=== PATIENT | female | born 1985 | race Caucasian/White ===

== ENCOUNTER 2017-08-28 06:46 | Emergency (ER) | payer BC ==
[2017-08-28] MEDS ORDERED: DiphenhydrAMINE 50 mg/ml Inj IVP STA (07:30)
[2017-08-28] MEDS ORDERED: Sodium Chloride 0.9% 1,000 ML IV STA (07:30)
--- NOTE | 2017-08-28 07:33 | ED PDOC ---
HPI: Skin/Bite Injury Time Seen by Provider: 08/28/17 07:24 Chief Complaint (Nursing): Abnormal Skin Integrity History Per: Patient Onset/Duration Of Symptoms: Days (2) Current Symptoms Are (Timing): Still Present Location Of Injury: Right: Arm, Left: Arm, Anterior: Abdomen, Face, Posterior: Back Quality Of Symptoms: Itching Severity: Moderate Additional Complaint(s): Erythemetous itchy rash involving arms legs, chest back, face and torso x 2 days. Denies SOB or tightness in throat. Responded initially to steroids and Benadryl at [facility] but recurred. Unknown allergen Past Medical History Vital Signs: Last Vital Signs Temp 97.8 F 08/28/17 07:08 Pulse 89 08/28/17 08:35 Resp 17 08/28/17 08:35 BP Pulse Ox 100 08/28/17 08:35 - Medical History PMH: Asthma - Family History Family History: States: Unknown Family Hx - Immunization History Hx Tetanus Toxoid Vaccination: No - Home Medications Home Medications: Ambulatory Orders Medication Instructions Recorded Clindamycin [Cleocin] 300 mg PO TID #30 cap 04/27/15 Cetirizine HCl [Zyrtec] 10 mg PO DAILY #10 capsule 08/28/17 Famotidine [Pepcid] 20 mg PO Q12 #20 tab 08/28/17 Prednisone 50 mg PO DAILY #5 tab 08/28/17 - Allergies Allergies/Adverse Reactions: Allergies Allergy/AdvReac Type Severity Reaction Status Date / Time Penicillins Allergy RASH Verified 04/27/15 21:17 Review of Systems Constitutional: Negative for: Fever ENT: Positive for: Mouth Swelling, Throat Swelling Respiratory: Negative for: Shortness of Breath, Wheezing Skin: Positive for: Rash Physical Exam - Physical Exam Appears: Positive for: Non-toxic, No Acute Distress Skin: Positive for: Rash (Erythemetous raised confluent rash involving legs, arms, abd and back. Areas of urticaria) ENT: Negative for: Nasal Congestion, Pharyngeal Erythema, Tonsillar Swelling Cardiovascular/Chest: Positive for: Regular Rate, Rhythm Respiratory: Positive for: Normal Breath Sounds. Negative for: Wheezing, Respiratory Distress Neurologic/Psych: Positive for: Alert, Oriented. Negative for: Motor/Sensory Deficits - Laboratory Results Result Diagrams: 08/28/17 07:35 08/28/17 07:35 - ECG O2 Sat by Pulse Oximetry: 97 - Progress Re-evaluation Time: 08:54 Condition: Improved (Rash fading less itching No SOB) Disposition - Clinical Impression Clinical Impression: Allergic reaction - Patient ED Disposition Is Patient to be Admitted: No Counseled Patient/Family Regarding: Studies Performed, Diagnosis, Need For Followup, Rx Given - Disposition Referrals: Kellie Zhong MD [Primary Care Provider] - Gregorio Hill MD [Staff Provider] - Disposition: Routine/Home Disposition Time: 08:55 Condition: FAIR Prescriptions: Cetirizine HCl [Zyrtec] 10 mg PO DAILY #10 capsule Famotidine [Pepcid] 20 mg PO Q12 #20 tab Prednisone 50 mg PO DAILY #5 tab Instructions: [place] (DC) Forms: [email or web address] (Belarusian)
[2017-08-28 07:46] LABS: BASO % 0.2 % (0.0-2.0); HEMOGLOBIN 14.6 g/dL (12.0-16.0); LYMPH % 5.1 % (20.0-40.0); MEAN CELL VOLUME 88.2 fl (81.0-99.0); MEAN CORPUSCULAR HEMOGLOBIN 30.8 pg (27.0-31.0); MEAN CORPUSCULAR HGB CONC 34.9 g/dL (33.0-37.0); MEAN PLATELET VOLUME 7.6 fl (7.2-11.7); MONO # 0.6 K/uL (0.0-0.8); MONO % 3.2 % (0.0-10.0); NEUT % 91.5 % (50.0-75.0); PLATELET COUNT 331 K/uL (130-400); RBC 4.75 Mil/uL (3.80-5.20); RED CELL DISTRIBUTION WIDTH 13.1 % (11.5-14.5); WHITE BLOOD COUNT 18.6 K/uL (4.8-10.8)
[2017-08-28] MEDS ORDERED: Famotidine 20mg/50ml 20 MG/50 ML BAG IVPB ONE (07:51)
[2017-08-28 08:14] LABS: ALB/GLOB RATIO 1.3 (1.0-2.1); ALBUMIN 4.4 g/dL (3.5-5.0); ALT/SGPT 34 U/L (9-52); AST/SGOT 28 U/L (14-36); BLOOD UREA NITROGEN 15 mg/dl (7-17); CALCIUM 9.6 mg/dL (8.4-10.2); GFR AFRICAN-AMERICAN > 60; GFR NON-AFRICAN AMERICAN > 60
[2017-08-28 09:03] LABS: BANDS 3 % (0-2); LYMPHOCYTE 5 % (20-50); MONOCYTE 6 % (0-10); NEUTROPHIL 86 % (42-75); PLATELET ESTIMATE NORMAL (NORMAL); TOTAL CELLS COUNTED 100
[2017-08-28 09:05] VITALS: BP 135/77; PULSE 88; RESP 18; TEMP 98.8; O2SAT 98
== END 2017-08-28 09:00 | disposition home or self-care (01) ==
LOC: H.ER 06:46
DX: T78.40XA Allergy, unspecified, initial encounter (principal); Z88.0 Allergy status to penicillin
CPT/HCPCS: 80053; 81025; 85025; 96361; 96374; 96375; 99283; J1200; J2930; J7030

== ENCOUNTER 2017-09-01 14:56 | Emergency (ER) | payer BC ==
[2017-09-01 15:08] VITALS: O2SAT 100
[2017-09-01] MEDS ORDERED: Sodium Chloride 0.9% 1,000 ML IV STA (16:36)
[2017-09-01] MEDS ORDERED: DiphenhydrAMINE 50 mg/ml Inj IVP STA (16:36)
[2017-09-01] MEDS ORDERED: DiphenhydrAMINE 50 mg/ml Inj ONE (16:54)
[2017-09-01 16:59] LABS: BASO # 0.1 K/uL (0.0-0.2); BASO % 0.5 % (0.0-2.0); EOS # 0.1 K/uL (0.0-0.7); EOS % 0.6 % (0.0-4.0); HEMOGLOBIN 14.6 g/dL (12.0-16.0); LYMPH # 4.5 K/uL (1.0-4.3); LYMPH % 33.4 % (20.0-40.0); MEAN CELL VOLUME 88.7 fl (81.0-99.0); MEAN CORPUSCULAR HEMOGLOBIN 30.2 pg (27.0-31.0); MEAN PLATELET VOLUME 7.5 fl (7.2-11.7); MONO # 0.6 K/uL (0.0-0.8); MONO % 4.6 % (0.0-10.0); NEUT # 8.2 K/uL (1.8-7.0); NEUT % 60.9 % (50.0-75.0); RBC 4.85 Mil/uL (3.80-5.20); WHITE BLOOD COUNT 13.5 K/uL (4.8-10.8)
[2017-09-01 17:21] LABS: ALB/GLOB RATIO 1.2 (1.0-2.1); ALBUMIN 3.9 g/dL (3.5-5.0); ALT/SGPT 43 U/L (9-52); AST/SGOT 37 U/L (14-36); BLOOD UREA NITROGEN 22 mg/dl (7-17); GFR AFRICAN-AMERICAN > 60; GFR NON-AFRICAN AMERICAN > 60
--- NOTE | 2017-09-01 18:32 | ED PDOC ---
HPI: Allergic Reaction Time Seen by Provider: 09/01/17 15:45 Chief Complaint (Nursing): Allergic Reaction Chief Complaint (Provider): Allergic reaction History Per: Patient History/Exam Limitations: no limitations Onset/Duration Of Symptoms: Days, Persistent Current Symptoms Are (Timing): Still Present Additional History Per: Patient Additional Complaint(s): 32yo female, comes to ER for evaluation of itchy red hives for the past 1 week. Patient states she was seen in an urgent care and given a shot of steroids on 08/27. She states her symptoms improved after that but came back again the next day , prompting her ER visit on 08/28. Patient was treated in the ER and placed on a course of steroids and benadryl, which she completed. She states the symptoms resolve and recur, prompting her ER visit today. Otherwise, she denies any fever , recent travel to [place] or [place], no new foods, drugs, soaps, or lotions. She also denies any fever, chills, chest pain or shortness of breath. Past Medical History Reviewed: Historical Data, Nursing Documentation, Vital Signs Vital Signs: Last Vital Signs Temp 97.7 F 09/01/17 15:06 Pulse 100 H 09/01/17 15:06 Resp 20 09/01/17 15:06 BP 127/77 09/01/17 15:06 Pulse Ox 100 09/01/17 15:06 - Medical History PMH: Asthma - Surgical History Surgical History: No Surg Hx - Family History Family History: States: No Known Family Hx, Unknown Family Hx - Immunization History Hx Tetanus Toxoid Vaccination: No - Home Medications Home Medications: Ambulatory Orders Medication Instructions Recorded Clindamycin [Cleocin] 300 mg PO TID #30 cap 04/27/15 Cetirizine HCl [Zyrtec] 10 mg PO DAILY #10 capsule 08/28/17 Famotidine [Pepcid] 20 mg PO Q12 #20 tab 08/28/17 Prednisone 50 mg PO DAILY #5 tab 08/28/17 DiphenhydrAMINE [Benadryl] 50 mg PO TID #40 cap 09/01/17 Famotidine [Pepcid] 40 mg PO DAILY #20 tablet 09/01/17 Prednisone 10 mg PO DAILY #45 tab 09/01/17 - Allergies Allergies/Adverse Reactions: Allergies Allergy/AdvReac Type Severity Reaction Status Date / Time Penicillins Allergy RASH Verified 09/01/17 15:06 Review of Systems ROS Statement: Except As Marked, All Systems Reviewed And Found Negative Constitutional: Negative for: Fever, Chills Respiratory: Negative for: Cough, Shortness of Breath Skin: Positive for: Rash Physical Exam - Reviewed Nursing Documentation Reviewed: Yes Vital Signs Reviewed: Yes - Physical Exam Comments: GENERAL APPEARANCE: Patient is awake, alert, oriented x 3, in no acute distress SKIN: (+) extensive urticarial rash to body, sparing palms, soles and face. HENT: (-) conjunctival injection, (-) chemosis. Oropharynx: clear (-) tongue or lip swelling, (-) tonsillar exudates, (-) erythema. Airway: patent (-) stridor, (-) hoarseness. Mucous membranes moist. Nares: Patent (-) rhinorrhea. NECK: (-) lymphadenopathy, (-) tenderness. CARDIOVASCULAR: Normal rate and rhythm. (-) murmur, (-) gallop. CHEST: (-) rales, (-) wheezing, (-) dyspnea, (-) stridor. Breath sounds equal bilaterally. ABDOMEN: Soft. (-) tenderness, (-) distention, (-) HSM. NEURO: Mental status: Patient is alert, oriented, and with normal strength and tone. - Laboratory Results Result Diagrams: 09/01/17 16:47 09/01/17 16:47 - ECG O2 Sat by Pulse Oximetry: 100 (RA) Pulse Ox Interpretation: Normal - Progress ED Course And Treament: Impression: Allergic reaction Plan: -- IV Fluids -- Benadryl 50mg IVP -- Pepcid 20mg IVP -- Solumderol 125mg IVP Patient remains awake, alert, oriented x 3 and is laying in bed comfortably, breathing easy and unlabored. On exam, there is noted improvement of the rash. 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 Advised to take medication as prescribed. Return to the emergency room at any time for any new or worsening symptoms. Patient states she fully agrees with and understands discharge instructions. States that she agrees with the plan and disposition. Verbalized and repeated discharge instructions and plan. I have given the patient opportunity to ask any additional questions. Scribe Attestation: Documented by Maegan Cheung, acting as a scribe for RICHY Lopez. Provider Scribe Attestation: All medical record entries made by the Scribe were at my direction and personally dictated by me. I have reviewed the chart and agree that the record accurately reflects my personal performance of the history, physical exam, medical decision making, and the department course for this patient. I have also personally directed, reviewed, and agree with the discharge instructions and disposition. Disposition - Clinical Impression Clinical Impression: Urticaria - Patient ED Disposition Is Patient to be Admitted: No Counseled Patient/Family Regarding: Studies Performed, Diagnosis, Need For Followup, Rx Given - Disposition Referrals: Gregorio Hill MD [Staff Provider] - Disposition: Routine/Home Disposition Time: 18:15 Condition: IMPROVED Additional Instructions: Thank you for letting us take care of you today. You were treated for urticaria. The emergency medical care you received today was directed at your acute symptoms. If you were prescribed any medication, please fill it and take as directed. It may take several days for your symptoms to resolve. Return to the Emergency Department if your symptoms worsen, do not improve, or if you have any other problems. Please call one of the physicians you have been referred to that are listed on the Patient Visit Information form that is included in your discharge packet. Bring any paperwork you were given at discharge with you along with any medications you are taking to your follow up visit. Our treatment cannot replace ongoing medical care by a primary care provider (PCP) outside of the emergency department. Thank you for allowing the [facility] team to be part of your care today. Prescriptions: DiphenhydrAMINE [Benadryl] 50 mg PO TID #40 cap Famotidine [Pepcid] 40 mg PO DAILY #20 tablet Prednisone 10 mg PO DAILY #45 tab Instructions: H[place] (DC) Forms: [employer] ([place]an), [facility] ED School/Work Excuse
[2017-09-01 19:48] VITALS: BP 130/66; PULSE 66; RESP 16; TEMP 98
== END 2017-09-01 18:30 | disposition home or self-care (01) ==
LOC: H.ER 14:56
DX: L50.0 Allergic urticaria (principal); T78.40XA Allergy, unspecified, initial encounter; J45.909 Unspecified asthma, uncomplicated; Z88.0 Allergy status to penicillin
CPT/HCPCS: 80053; 81025; 85025; 96374; 96375; 99284; J1200; J2930; J7030